=== PATIENT | female | born 1990 | race Hispanic/Latino ===

== ENCOUNTER 2016-04-26 09:07 | Emergency (ER) | payer OTHER ==
[~2016-04-26] VITALS: Ht 157.5 cm; Wt 91.9 kg
[~2016-04-26 09:07] MED LIST: VIBRAMYCIN100 MG PO
[2016-04-26 09:43] LABS: HEMATOCRIT 36.9 % (36.0-46.0); MCH 28.3 PG (29.0-34.0); MCHC 33.9 G/DL (30.0-36.0); MCV 83.7 FL (83-99); MEAN PLAT.VOLUME 11.9 uM^3 (9.5-12.4); PLATELET COUNT 190 K/uL (156-360); RBC DIS.WIDTH-CV 12.5 % (11.8-14.6); RBC DIS.WIDTH-SD 37.6 % (39-53); RED BLOOD COUNT 4.41 M/uL (3.80-5.20); WHITE BLOOD COUNT 7.4 K/uL (4.1-10.2)
[2016-04-26 09:56] LABS: CHLORIDE 104 mEq/L (99-109); POTASSIUM 3.6 mEq/L (3.7-5.4); SODIUM 137 mEq/L (136-147)
[2016-04-26 09:58] LABS: GLUCOSE 102 mg/dL (70-99)
[2016-04-26 09:59] LABS: ANION GAP 7 MEQ/L (2-14)
[2016-04-26 10:00] LABS: TOTAL BILIRUBIN 0.4 mg/dL (0.0-1.0)
[2016-04-26 10:01] LABS: ALKALINE PHOSPHATASE 100 IU/L (3-129)
[2016-04-26 10:02] LABS: GFR ESTIMATE (CALCULATED) > 59 mL/min/
[2016-04-26 10:03] LABS: UREA NITROGEN (BUN) 9 mg/dL (9-23)
[2016-04-26 10:04] LABS: ADD MIUA? YES; BILIRUBIN NEGATIVE; BLOOD TRACE; COLOR YELLOW ((YELLOW)); GLUCOSE (STRIP) NEGATIVE; KETONES NEGATIVE; LEUKOCYTES NEGATIVE; NITRITE NEGATIVE; PROTEIN (STRIP) NEGATIVE; SPECIFIC GRAVITY 1.009 (1.000-1.030); UROBILINOGEN 0.2 MG/DL (0.2-1.0)
[2016-04-26 10:11] LABS: QUANTITATIVE HCG < 4.0 MIU/ML
[2016-04-26 10:16] LABS: BACTERIA NONE SEEN; CASTS NONE SEEN /LPF; CRYSTALS NONE SEEN; EPITHELIAL CELLS RARE; MUCUS NONE SEEN; PATHOLOGICAL CAST NONE SEEN; RED BLOOD CELLS 0-5 /HPF (0-5); SMALL ROUND CELL NONE SEEN; UCUL ADDED? NO; WHITE BLOOD CELLS 0-5 /HPF (0-5); YEAST-LIKE CELL NONE SEEN
[2016-04-26 12:29] VITALS: BP 108/65
== END 2016-04-26 12:30 | disposition home or self-care (01) ==
LOC: EME 09:07
DX: R10.84 Generalized abdominal pain (principal); K59.00 Constipation, unspecified; N92.6 Irregular menstruation, unspecified
CPT/HCPCS: 74020; 80053; 81003; 84702; 85027; 99281; 99284

== ENCOUNTER 2017-04-23 19:22 | Emergency (ER) | payer SELFPAY ==
[~2017-04-23] VITALS: Ht 157.5 cm; Wt 91.9 kg
[2017-04-23 21:58] LABS: HEMATOCRIT 34.8 % (36.0-46.0); HEMOGLOBIN 11.8 G/DL (11.9-15.5); MCH 28.6 PG (29.0-34.0); MCHC 33.9 G/DL (30.0-36.0); MCV 84.3 FL (83-99); PLATELET COUNT 188 K/uL (156-360); RBC DIS.WIDTH-CV 11.9 % (11.8-14.6); RBC DIS.WIDTH-SD 36.2 % (39-53); RED BLOOD COUNT 4.13 M/uL (3.80-5.20); WHITE BLOOD COUNT 13.1 K/uL (4.1-10.2)
[2017-04-23 22:07] LABS: CHLORIDE 104 mEq/L (99-109); POTASSIUM 3.4 mEq/L (3.7-5.4); SODIUM 136 mEq/L (136-147)
[2017-04-23 22:09] LABS: GLUCOSE 97 mg/dL (70-99)
[2017-04-23 22:13] LABS: CREATININE 0.7 mg/dL (0.6-1.3); GFR ESTIMATE (CALCULATED) > 59 mL/min/
[2017-04-23 22:14] LABS: UREA NITROGEN (BUN) 8 mg/dL (9-23)
[2017-04-23 22:23] LABS: APPEARANCE SL.HAZY ((CLEAR)); BILIRUBIN NEGATIVE; BLOOD MODERATE; COLOR YELLOW ((YELLOW)); GLUCOSE (STRIP) NEGATIVE; KETONES NEGATIVE; LEUKOCYTES TRACE; NITRITE NEGATIVE; PROTEIN (STRIP) NEGATIVE; SPECIFIC GRAVITY 1.014 (1.000-1.030); UROBILINOGEN 0.2 MG/DL (0.2-1.0)
[2017-04-23 22:33] LABS: BACTERIA RARE /HPF; EPITHELIAL CELLS 1+ /HPF; MUCUS TRACE /LPF; RED BLOOD CELLS 0-5 /HPF (0-5); UCUL ADDED? NO; WHITE BLOOD CELLS 0-5 /HPF (0-5)
[2017-04-23 22:40] LABS: QUANTITATIVE HCG 50729.4 MIU/ML
[2017-04-23 23:46] VITALS: BP 119/73
== END 2017-04-23 23:46 | disposition home or self-care (01) ==
LOC: EXP 19:22 → EME 19:22 → EXP 23:46
PROVIDERS: Physician Assistant
DX: O26.899 Other specified pregnancy related conditions, unspecified trimester (principal); R51 Headache; Z3A.00 Weeks of gestation of pregnancy not specified
CPT/HCPCS: 80048; 81003; 84702; 85027; 99281; 99284; J2405; J7030

== ENCOUNTER 2017-05-11 23:45 | Emergency (ER) | payer SELFPAY ==
[~2017-05-11] VITALS: Ht 157.5 cm; Wt 91.4 kg
[2017-05-12 00:06] LABS: HEMATOCRIT 33.6 % (36.0-46.0); HEMOGLOBIN 11.5 G/DL (11.9-15.5); MCH 28.8 PG (29.0-34.0); MCHC 34.2 G/DL (30.0-36.0); MCV 84.2 FL (83-99); PLATELET COUNT 167 K/uL (156-360); RBC DIS.WIDTH-SD 36.7 % (39-53); RED BLOOD COUNT 3.99 M/uL (3.80-5.20); WHITE BLOOD COUNT 9.1 K/uL (4.1-10.2)
[2017-05-12 00:41] LABS: CHLORIDE 104 mEq/L (99-109); POTASSIUM 3.5 mEq/L (3.7-5.4); SODIUM 136 mEq/L (136-147)
[2017-05-12 00:42] LABS: GLUCOSE 88 mg/dL (70-99)
[2017-05-12 00:46] LABS: CREATININE 0.6 mg/dL (0.6-1.3); GFR ESTIMATE (CALCULATED) > 59 mL/min/
[2017-05-12 00:47] LABS: UREA NITROGEN (BUN) 7 mg/dL (9-23)
[2017-05-12 01:54] LABS: QUANTITATIVE HCG 65565.7 MIU/ML
[2017-05-12 02:41] VITALS: BP 142/85
== END 2017-05-12 02:42 | disposition home or self-care (01) ==
LOC: EME 23:45
PROVIDERS: Emergency Medicine
DX: O20.0 Threatened abortion (principal); Z3A.11 11 weeks gestation of pregnancy
CPT/HCPCS: 76801; 80048; 84702; 85027; 86900; 86901; 99281; 99285

== ENCOUNTER 2017-07-13 19:25 | Emergency (ER) | payer OTHER ==
[~2017-07-13] VITALS: Ht 157.5 cm; Wt 91.3 kg
[2017-07-13 23:30] LABS: APPEARANCE SL.HAZY ((CLEAR)); BILIRUBIN NEGATIVE; BLOOD NEGATIVE; COLOR YELLOW ((YELLOW)); GLUCOSE (STRIP) NEGATIVE; KETONES NEGATIVE; LEUKOCYTES NEGATIVE; NITRITE NEGATIVE; PROTEIN (STRIP) NEGATIVE; SPECIFIC GRAVITY 1.014 (1.000-1.030); UROBILINOGEN 0.2 MG/DL (0.2-1.0)
[2017-07-13 23:37] LABS: BACTERIA RARE /HPF; EPITHELIAL CELLS 1+ /HPF; MUCUS TRACE /LPF; RED BLOOD CELLS 0-5 /HPF (0-5); UCUL ADDED? NO; WHITE BLOOD CELLS 0-5 /HPF (0-5)
[2017-07-13 23:58] VITALS: BP 123/69
== END 2017-07-13 23:58 | disposition home or self-care (01) ==
LOC: EME 19:25
PROVIDERS: Nurse Practitioner Family
DX: O9A.212 Injury, poisoning and certain other consequences of external causes complicating pregnancy, second trimester (principal); R10.30 Lower abdominal pain, unspecified; O36.8120 Decreased fetal movements, second trimester, not applicable or unspecified; V49.40XA Driver injured in collision with unspecified motor vehicles in traffic accident, initial encounter; Y92.410 Unspecified street and highway as the place of occurrence of the external cause; Z3A.19 19 weeks gestation of pregnancy
CPT/HCPCS: 76805; 81003; 99281; 99283